=== PATIENT | male | born 1980 | race Caucasian/White ===

== ENCOUNTER → 2017-10-06 21:06 | Outpatient (REF) | payer BC, SELFPAY | LOC: LAB 21:06 | PROVIDERS: Visit Provider Nurse Practitioner Family | DX: R53.83 Other fatigue (principal); Z79.899 Other long term (current) drug therapy ==

== ENCOUNTER 2017-11-11 08:00 | Outpatient (RCR) | payer BC, SELFPAY ==
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
== END 2017-11-11 08:01 | disposition home or self-care (01) ==
LOC: PT 08:00
PROVIDERS: Visit Provider Nurse Practitioner Family
DX: M54.6 Pain in thoracic spine (principal); G89.29 Other chronic pain
CPT/HCPCS: 97010; 97014; 97033; 97110; 97140; G0283

== ENCOUNTER → 2017-11-20 13:38 | Outpatient (CLI) | payer BC, SELFPAY ==
--- NOTE | 2017-11-20 13:41 | XR_ITS ---
EXAM: XR cervical spine 2V HISTORY: ITS.REASON: neck pain ORDERING PHYSICIAN: Venessa Marie PATIENT AGE: 37 years COMPARISON: None FINDINGS: Normal alignment. No fracture or dislocation. No lytic or blastic change. No significant degenerative change. The disc spaces are preserved. There is overlying artifact from the patient's ear rings which reportedly cannot be removed. IMPRESSION: Negative cervical spine
--- NOTE | 2017-11-20 13:41 | XR_ITS ---
EXAM: XR lumbar spine 2-3V HISTORY: ITS.REASON: back pain ORDERING PHYSICIAN: Venessa Marie PATIENT AGE: 37 years COMPARISON: None FINDINGS: Normal alignment. No fracture or dislocation. No lytic or blastic change. There is some endplate irregularity involving the anterior superior aspect of L2 with slight decrease in the disc space at that level suggesting mild degenerative disc disease. There is mild anterolisthesis of L5 on S1 of 5 mm as before. IMPRESSION: 1. Mild degenerative disc disease at L1-L2. There is some minimal endplate irregularity of the superior endplate of L2. This may be better evaluated with MRI if clinically warranted. Early discitis cannot be excluded 2. Mild anterolisthesis of L5 on S1 not significant changed.
--- NOTE | 2017-11-20 13:41 | XR_ITS ---
EXAM: XR thoracic spine 3V HISTORY: ITS.REASON: mid back pain COMPARISON: 10/14/2014 FINDINGS: Normal alignment. No fracture or dislocation. No lytic or blastic change. Minimal endplate osteophytes are present in the lower thoracic spine. IMPRESSION: No change with no acute finding. Mild thoracic spondylosis
== END ==
PROVIDERS: PCP Emergency Medicine; Visit Provider Nurse Practitioner Family
DX: M54.6 Pain in thoracic spine (principal); G89.29 Other chronic pain; M54.2 Cervicalgia; R53.83 Other fatigue
CPT/HCPCS: 72040; 72072; 72100

== ENCOUNTER → 2017-12-29 13:00 | Outpatient (CLI) | payer BC, SELFPAY ==
[2017-12-29 14:42] LABS: Basophils # 0.1 K/mm3 (0-0.2); Basophils % 0.6 % (0.1-2.0); Eosinophils # 0.7 K/mm3 (0.0-0.4); Eosinophils % 6.8 % (0.1-12.0); Hematocrit 46.6 % (42.0-52.0); Lymphocytes % 29.3 K/mm3 (10-50); Mean Corpuscular HGB Conc 34.3 g/dL (31.8-35.4); Mean Corpuscular Hemoglobin 32.5 pg (27.0-31.2); Mean Corpuscular Volume 94.8 fl (80-94); Mean Platelet Volume 7.1 fl (7.4-10.4); Monocytes # 0.4 K/mm3 (0.1-1.0); Monocytes % 4.2 % (1.7-9.3); Neutrophils # 6.1 K/mm3 (1.8-7.8); Platelet Count 325 K/mm3 (142-424); Red Blood Count 4.92 M/mm3 (4.60-6.20); Red Cell Distribution Width 12.5 % (11.5-17.5); White Blood Count 10.3 K/mm3 (4.8-10.8)
[2017-12-29 15:21] LABS: Hemoglobin A1C 5.5 % (0.0-7.0)
[2017-12-29 15:54] LABS: Alanine Aminotransferase 28 U/L (12-78); Albumin Level 4.9 gm/dL (3.4-5.0); Albumin/Globulin Ratio 1.5 (1.1-1.8); Alkaline Phosphatase 43 U/L (46-116); Anion Gap 13.1 mEq/L (5-15); Aspartate Amino Transferase 19 U/L (15-37); Bilirubin,Total 0.3 mg/dL (0.2-1.0); Blood Urea Nitrogen 19 mg/dL (7-18); Calcium 9.8 mg/dL (8.5-10.1); Carbon Dioxide 29 mmol/L (21.0-32.0); Chloride 101 mmol/L (98-107); Chol/HDL Ratio 4.4 (1-3.5); Cholesterol 226 mg/dL (140-200); Creatinine,Serum 0.95 mg/dL (0.70-1.30); Estimated Glomerular Filt Rate 90 ml/min (>60); Free T4 (Free Thyroxine) 0.63 ng/dl (0.76-1.46); GFR (African American) 109 ML/MIN (>60); Globulin 3.2 gm/dl (1.3-3.2); Glucose 96 mg/dL (74-106); HDL Cholesterol 51 mg/dL (27-67); LDL Cholesterol 163 mg/dL (0-130); Potassium 4.1 mmoL/L (3.5-5.1); Sodium 139 mmol/L (136-145); Thyroid Stimulating Hormone 105.06 uIU/ml (0.358-3.740); Total Protein,Serum 8.1 gm/dL (6.4-8.2); Triglycerides 60 mg/dL (30-200); VLDL Cholesterol 12 mg/dL (0-40)
[2018-01-16 20:17] LABS: Vitamin D 25 Hydroxy 15.3
== END ==
PROVIDERS: Visit Provider Nurse Practitioner Family
DX: R53.83 Other fatigue (principal)
CPT/HCPCS: 36415; 80053; 80061; 82652; 83036; 84439; 84443; 85025

== ENCOUNTER → 2018-01-02 13:28 | Outpatient (CLI) | payer BC, SELFPAY ==
--- NOTE | 2018-01-02 13:33 | MR_ITS ---
MR lumbar spine wo/w con COMPARISON: Plain films lumbar spine 10/14/2014 HISTORY: Low back pain TECHNIQUE: Standard sagittal and axial sequences were performed along with a myelogram sequence and post gadolinium T1 sagittal T1 axial images. FINDINGS: Curvature and alignment appear normal. The marrow signal is normal in all lumbar vertebrae. The spinal canal is normal size throughout. There is a normal healthy high signal in each lumbar disc there is no abnormal disc protrusion identified. There are defects of the pars interarticularis bilaterally at L5-S1 with only 1 to 2 mm anterolisthesis of L5 on S1. There are mild hypertrophic facet changes at the L2-3, L3-4 and L4-5 levels.. There is minor anterior osteophytic spurring at the anterior superior border of L2 and anterior superior border of T12. The conus is normal. There is no abnormal enhancement on the postgadolinium images. IMPRESSION: 1. Bilateral spondylolysis L5-S1 with only minor anterolisthesis of L5 on S1 which has not progressed since the previous plain films September 2014. 2. Mild hypertrophic facet changes lower lumbar spine as noted
== END ==
PROVIDERS: PCP Emergency Medicine; Visit Provider Orthopaedic Surgery Adult Reconstructive Orthopaedic Surgery
DX: M51.86 Other intervertebral disc disorders, lumbar region (principal)
CPT/HCPCS: 72158; 76376; A9576

== ENCOUNTER 2018-02-19 08:00 | Outpatient (RCR) | payer BC, SELFPAY | END 2018-02-19 08:01 | disposition home or self-care (01) | LOC: PT 08:00 | PROVIDERS: PCP Emergency Medicine; Visit Provider Orthopaedic Surgery Adult Reconstructive Orthopaedic Surgery | DX: M54.5 Low back pain (principal); M54.2 Cervicalgia | CPT/HCPCS: 36415; 80053; 80061; 82652; 83036; 84439; 84443; 85025; 97010; 97014; 97035; 97110; 97140; 97163; 97164; G0283 ==

== ENCOUNTER → 2018-05-21 15:14 | Outpatient (CLI) | payer BC, SELFPAY | LOC: LAB 15:16 | PROVIDERS: PCP Nurse Practitioner Family; Visit Provider Nurse Practitioner Family | DX: Y99.9 Unspecified external cause status (principal) | CPT/HCPCS: 36415 ==

== ENCOUNTER → 2018-05-28 15:21 | Outpatient (CLI) | payer BC, SELFPAY ==
[2018-05-28 16:40] LABS: Chol/HDL Ratio 3.6 (1-3.5); Cholesterol 176 mg/dL (140-200); HDL Cholesterol 49 mg/dL (27-67); LDL Cholesterol 114 mg/dL (0-130); Thyroid Stimulating Hormone 36.78 uIU/ml (0.358-3.740); Triglycerides 65 mg/dL (30-200); VLDL Cholesterol 13 mg/dL (0-40)
== END ==
PROVIDERS: PCP Emergency Medicine; Visit Provider Nurse Practitioner Family
DX: E78.5 Hyperlipidemia, unspecified (principal)
CPT/HCPCS: 36415; 80061; 84443

== ENCOUNTER 2018-07-20 09:00 | Outpatient (RCR) | payer BC, SELFPAY | END 2018-07-20 09:01 | disposition home or self-care (01) | LOC: PT 09:00 | PROVIDERS: PCP Emergency Medicine; Visit Provider Physical Medicine & Rehabilitation | DX: M47.816 Spondylosis without myelopathy or radiculopathy, lumbar region (principal) | CPT/HCPCS: 97010; 97014; 97110; 97140; 97163; 97164; G0283 ==

== ENCOUNTER → 2018-12-08 14:45 | Outpatient (CLI) | payer BC, SELFPAY ==
[2018-12-08 15:33] LABS: Alanine Aminotransferase 89 U/L (12-78); Albumin Level 4.6 gm/dL (3.4-5.0); Albumin/Globulin Ratio 1.5 (1.1-1.8); Alkaline Phosphatase 50 U/L (46-116); Anion Gap 16.3 mEq/L (5-15); Aspartate Amino Transferase 27 U/L (15-37); Bilirubin,Total 0.3 mg/dL (0.2-1.0); Blood Urea Nitrogen 22 mg/dL (7-18); Calcium 9.4 mg/dL (8.5-10.1); Carbon Dioxide 25 mmol/L (21.0-32.0); Chloride 103 mmol/L (98-107); Cholesterol 124 mg/dL (140-200); Creatinine,Serum 1.03 mg/dL (0.70-1.30); Estimated Glomerular Filt Rate 82 ml/min (>60); GFR (African American) 99 ML/MIN (>60); Globulin 3.1 gm/dl (1.3-3.2); Glucose 102 mg/dL (74-106); HDL Cholesterol 41 mg/dL (27-67); LDL Cholesterol 72 mg/dL (0-130); Potassium 4.3 mmoL/L (3.5-5.1); Sodium 140 mmol/L (136-145); T4 (Thyroxine) 10.8 ug/dl (4.7-13.3); Thyroid Stimulating Hormone 2.72 uIU/ml (0.358-3.740); Total Protein,Serum 7.7 gm/dL (6.4-8.2); Triglycerides 54 mg/dL (30-200); VLDL Cholesterol 11 mg/dL (0-40)
[2018-12-08 16:23] LABS: Basophils # 0.1 K/mm3 (0-0.2); Basophils % 1.4 % (0.1-2.0); Eosinophils # 0.6 K/mm3 (0.0-0.4); Eosinophils % 6.5 % (0.1-12.0); Hematocrit 45.9 % (42.0-52.0); Hemoglobin 15.3 g/dL (14.1-18.0); Lymphocytes # 2.8 K/mm3 (0.7-4.5); Lymphocytes % 32.8 % (10-50); Mean Corpuscular HGB Conc 33.3 g/dL (31.8-35.4); Mean Corpuscular Hemoglobin 32.1 pg (27.0-31.2); Mean Corpuscular Volume 96.4 fl (80-94); Mean Platelet Volume 8.4 fl (7.4-10.4); Monocytes # 0.4 K/mm3 (0.1-1.0); Monocytes % 4.6 % (1.7-9.3); Neutrophils # 4.7 K/mm3 (1.8-7.8); Neutrophils % 54.8 % (37.0-80.0); Platelet Count 298 K/mm3 (142-424); Red Blood Count 4.76 M/mm3 (4.60-6.20); White Blood Count 8.6 K/mm3 (4.8-10.8)
[2018-12-10 12:58] LABS: Vitamin D 25 Hydroxy 71.1 ng/mL (30.0-100.0)
== END ==
PROVIDERS: Visit Provider Nurse Practitioner Family
DX: E78.5 Hyperlipidemia, unspecified (principal)
CPT/HCPCS: 80053; 80061; 82652; 84436; 84443; 85025

== ENCOUNTER → 2018-12-18 15:21 | Outpatient (CLI) | payer BC, SELFPAY ==
[2018-12-18 15:53] LABS: INR 0.97 (0.9-1.1)
[2018-12-20 18:06] LABS: Hep B Core Ab, Total Negative (Negative); Hepatitis B Surface Antigen Negative (Negative)
[2018-12-20 21:30] LABS: HIV Screen 4th Generation wRfx Non Reactive (Non Reactive); Hep A Ab, Total Negative (Negative); Hepatitis B Surf Ab Quant <3.1 mIU/mL (Immunity>9.9); Hepatitis C Antibody 0.1 s/co ratio (0.0-0.9)
== END ==
PROVIDERS: Visit Provider Nurse Practitioner Family
DX: R74.8 Abnormal levels of other serum enzymes (principal)
CPT/HCPCS: 36415; 85610; 86703; 86704; 86706; 86708; 87340; 87380; 87522; G0432

== ENCOUNTER → 2019-01-11 12:37 | Outpatient (CLI) | payer BC, SELFPAY ==
--- NOTE | 2019-01-11 12:43 | MR_ITS ---
MR lumbar spine wo con, MR 3-d myelogram/MRCP HISTORY: Low back pain X years. Bilateral hip and knee pain. Bilateral Leg pain and numbness and tingling at times. ITS.REASON: INTERVERTEBRAL DISC DEGENERATION ORDERING PHYSICIAN: Stevenson Cohen PATIENT AGE: 38 years Comparison: MRI 01-02-18. X-Ray 11-20-17. TECHNIQUE: Standard multiplanar multiecho sequences are performed without contrast. 3-D MIP and myelographic images are also rendered and reviewed FINDINGS: The spinal cord is at the T12-L1 level. T11-T12: Mild degenerative disc disease T12-L1: Unremarkable. L1-L2: Unremarkable. L2-L3: Unremarkable. L3-L4: Mild facet ligamentum flavum hypertrophy with minimal bilateral foraminal narrowing. L4-5: Mild facet and ligamentum flavum hypertrophy with mild bilateral foraminal narrowing. L5-S1: There is mild anterolisthesis of L5 on S1 with bulging disc at that level along with mild facet hypertrophic change with mild bilateral foraminal narrowing No canal stenosis or extruded herniated disc with no significant change. IMPRESSION: 1. There is mild facet and ligamentum flavum hypertrophy from L3 to S1 with mild foraminal narrowing overall not significantly changed. 2. Minimal bulging disc at L5-S1 with minimal anterolisthesis of L5 not significant changed. 3. No canal stenosis or extruded herniated disc apparent.
== END ==
PROVIDERS: PCP Emergency Medicine; Visit Provider Orthopaedic Surgery Adult Reconstructive Orthopaedic Surgery
DX: M51.36 Other intervertebral disc degeneration, lumbar region (principal)
CPT/HCPCS: 72148; 76376

== ENCOUNTER → 2019-09-22 13:29 | Outpatient (CLI) | payer BC, SELFPAY ==
[2019-09-22 16:13] LABS: Free T4 (Free Thyroxine) 0.56 ng/dl (0.76-1.46)
[2019-09-22 16:14] LABS: Thyroid Stimulating Hormone 139.46 uIU/ml (0.358-3.740)
== END ==
PROVIDERS: Visit Provider Emergency Medicine
DX: R53.83 Other fatigue (principal)
CPT/HCPCS: 84439; 84443

== ENCOUNTER 2019-12-01 09:00 | Outpatient (RCR) | payer BC, SELFPAY ==
--- NOTE | 2019-11-22 15:06 | HMH.PTOPEV ---
PT Outpatient Evaluation Rehab PT Outpatient Evaluation Start: 11/22/19 14:33 Freq: Status: Active Protocol: Document 11/22/19 14:34 SHAE (Rec: 11/22/19 15:05 SHAE [id number]) Electronically Signed By Adelso Iraheta, PT 11/22/19 14:34 Outpatient Therapy Subjective History Subjective History Pt reports h/o chronic neck and back pain over the last ~4 yrs. Pt reports no initial injury, and no 'significant' findings on low back MRI/Xray. Pt reports L>R sided mid-to- LBP, however, global spine is 'severe' as well, 'it feels like any movement just causing me to tighten up'. Chief Complaint Pain,Spasms,Stiff Symptom Type Ache,Dull,Stabbing Symptoms Relieved By Rest/Positioning,Heat Symptoms Aggravated By Standing,Bending/Stooping, Physical Activity,Twisting, Walking,Lifting Prior Functional Limitations Reaching,Lifting,Housework, Driving,Standing,Sitting Current Functional Limitations Reaching,Lifting,Housework, Driving,Standing,Sitting, Walking Symptom Description Constant and Continuous Level of pain today (0-10) 8 Pain scale - at its best (0-10) 6 Pain scale - at its worst (0-10) 10 Cervical Eval Palpation Cervical Muscles R Cervical Paraspinal,L Cervical Paraspinal,R Suboccipital,L Suboccipital,R CT Junction,L CT Junction,R Upper Trapezius,L Upper Trapezius,R Thoracic Paraspinals,L Thoracic Paraspinals Cervical/Thoracic Palpation Findings Tenderness,Trigger Point, Muscle Guarding Posture Head/C-Spine Posture Sitting Position Flexed Head/C-Spine Posture Standing Position Flexed Flexibility Deficits Upper Trapezius Muscle Length (R) Severe Tightness,(L) Severe Tightness Levaetor Scapulae Muscle Length (R) Severe Tightness,(L) Severe Tightness Scalene Group Muscle Length (R) Severe Tightness,(L) Severe Tightness Pectoralis Major Muscle Length (R) Moderate Tightness,(L) Moderate Tightness Pectoralis Minor Muscle Length (R) Moderate Tightness,(L) Moderate Tightness Passive Joint Mobility Cervical PIVM
== END 2019-12-01 10:00 | disposition home or self-care (01) ==
LOC: PT 09:00
PROVIDERS: PCP Emergency Medicine; Visit Provider Emergency Medicine
DX: M54.2 Cervicalgia (principal); M54.9 Dorsalgia, unspecified
CPT/HCPCS: 97010; 97014; 97035; 97163; G0283

== ENCOUNTER → 2019-12-01 10:59 | Outpatient (CLI) | payer BC, SELFPAY ==
--- NOTE | 2019-12-01 11:04 | XR_ITS ---
PROCEDURE: XR LUMBAR SPINE MIN 4V CLINICAL INDICATION: back pain COMPARISON: No exams were available for comparison FINDINGS: There is mild lumbar curvature convex right. Minimal spurring is present along the anterior superior aspect of L2. The disc spaces are well preserved. No acute lumbar fracture or dislocation. There is an old eleventh rib fracture on the right with incomplete bony union. There is a moderate amount of retained colonic feces IMPRESSION: 1. No acute finding lumbar spine. 2. Old right 11th rib fracture with incomplete bony union Dictated by: Adair Hendrickson MD 12/01/2019 19:25 Electronically signed by Adair Hendrickson MD in [place] 12/01/2019 19:25
--- NOTE | 2019-12-01 11:04 | XR_ITS ---
PROCEDURE: XR CERVICAL SPINE 5V CLINICAL INDICATION: neck pain COMPARISON: [id number] XR cervical spine 2V from 11/20/2017 FINDINGS: Normal alignment. No fracture or dislocation. No lytic or blastic change. There is some mild foraminal narrowing on the right at C5-C6. Artifact is present from the patient's earrings which he refused to remove. IMPRESSION: No acute finding. Mild right foraminal narrowing at C5-C6 Dictated by: Adair Hendrickson MD 12/01/2019 19:26 Electronically signed by Adair Hendrickson MD in [place] 12/01/2019 19:26
--- NOTE | 2019-12-01 11:04 | XR_ITS ---
PROCEDURE: XR THORACIC SPINE 3V CLINICAL INDICATION: back pain COMPARISON: [id number] XR thoracic spine 3V from 11/20/2017 FINDINGS: There is mild thoracic kyphosis with mild wedging involving T10-T11 and T12 which appears chronic. No acute fracture or dislocation is evident. There is mild degenerative disc disease in the lower thoracic spine. There is an old right 11th rib fracture IMPRESSION: Degenerative changes as described above with old right 11th rib fracture Dictated by: Adair Hendrickson MD 12/01/2019 19:00 Electronically signed by Adair Hendrickson MD in [place] 12/01/2019 19:00
== END ==
PROVIDERS: PCP Emergency Medicine; Visit Provider Emergency Medicine
DX: M54.2 Cervicalgia (principal); M54.9 Dorsalgia, unspecified; M54.5 Low back pain; M54.6 Pain in thoracic spine
CPT/HCPCS: 72050; 72072; 72110

== ENCOUNTER → 2020-01-31 16:53 | Outpatient (CLI) | payer BC, SELFPAY ==
[2020-01-31 17:59] LABS: Basophils # 0.1 K/mm3 (0-0.2); Basophils % 0.9 % (0.1-2.0); Eosinophils # 0.8 K/mm3 (0.0-0.4); Eosinophils % 10.3 % (0.1-12.0); Hemoglobin 14.9 g/dL (14.1-18.0); Lymphocytes # 2.6 K/mm3 (0.7-4.5); Mean Corpuscular Hemoglobin 31.1 pg (27.0-31.2); Mean Corpuscular Volume 91.4 fl (80-94); Mean Platelet Volume 8.8 fl (7.4-10.4); Monocytes # 0.6 K/mm3 (0.1-1.0); Monocytes % 6.7 % (1.7-9.3); Neutrophils # 4.2 K/mm3 (1.8-7.8); Neutrophils % 51.1 % (37.0-80.0); Platelet Count 325 K/mm3 (142-424); Red Blood Count 4.81 M/mm3 (4.60-6.20); White Blood Count 8.2 K/mm3 (4.8-10.8)
[2020-01-31 18:51] LABS: Alanine Aminotransferase 33 U/L (12-78); Albumin Level 4.5 g/dl (3.5-5.0); Albumin/Globulin Ratio 1.5 (1.1-1.8); Alkaline Phosphatase 50 U/L (38-126); Anion Gap 12.4 mEq/L (5-15); Aspartate Amino Transferase 30 U/L (17-59); Blood Urea Nitrogen 19 mg/dl (9-20); Calcium 10.1 mg/dl (8.4-10.2); Carbon Dioxide 26 mmol/L (22.0-30.0); Chloride 100 mmol/L (98-107); Chol/HDL Ratio 2.9 (1-3.5); Cholesterol 144 mg/dl (140-200); Estimated Glomerular Filt Rate 84 ml/min (>60); GFR (African American) 102 ML/MIN (>60); Globulin 3.1 g/dL (1.3-3.2); Glucose 102 mg/dl (74-100); HDL Cholesterol 50 mg/dl (40-60); Potassium 4.4 mmoL/L (3.5-5.1); Sodium 134 mmol/L (136-145); Total Protein,Serum 7.6 g/dl (6.3-8.2); Triglycerides 108 mg/dl (30-150); VLDL Cholesterol 22 mg/dL (0-40)
[2020-01-31 18:52] LABS: Bilirubin,Total 0.1 mg/dl (0.2-1.3)
[2020-01-31 19:02] LABS: Direct LDL Cholesterol 92.47 mg/dL (100-129)
[2020-01-31 19:07] LABS: T4 (Thyroxine) 10.2 ug/dl (5.53-11.0)
[2020-02-02 11:27] LABS: Vitamin D 25 Hydroxy 41.8 ng/mL (30.0-100.0)
== END ==
PROVIDERS: Visit Provider Emergency Medicine
DX: E78.5 Hyperlipidemia, unspecified (principal); M54.9 Dorsalgia, unspecified; E03.9 Hypothyroidism, unspecified
CPT/HCPCS: 80053; 80061; 82652; 84436; 84443; 85025

== ENCOUNTER 2020-04-04 08:30 | Outpatient (RCR) | payer BC, SELFPAY | END 2020-04-04 08:35 | disposition home or self-care (01) | LOC: PT 08:30 | PROVIDERS: PCP Emergency Medicine; Visit Provider Anesthesiology Pain Medicine | DX: G89.4 Chronic pain syndrome (principal) | CPT/HCPCS: 97010; 97014; 97035; 97110; 97163; 97164; G0283 ==

== ENCOUNTER → 2020-04-17 13:52 | Outpatient (CLI) | payer BC, SELFPAY ==
--- NOTE | 2020-04-17 13:54 | MR_ITS ---
PROCEDURE: MR LUMBAR SPINE WO CON CLINICAL INDICATION: LUMBAR SPONDYLOSIS Lbp. Bilateral leg pain. Symptoms x5-6yrs. Prior MRI 01/02/2018 TECHNIQUE: Standard multiplanar multiecho sequences are performed without contrast. 3-D MIP and myelographic images are also rendered and reviewed FINDINGS: There is normal alignment. The spinal cord ends at the T12-L1 level. L1-L2: Unremarkable. L2-L3: Unremarkable. There is mild facet and ligamentum hypertrophy at L3-L4 L4-5 and L5-S1 with minimal anterolisthesis of L5 on S1 and minimal bulging disc along with mild bilateral foraminal narrowing which is not significantly changed. No extruded herniated disc or canal stenosis. There is some type 2 endplate changes anteriorly at L2 superiorly No disc herniation, canal stenosis IMPRESSION: Overall no significant change in the mild lumbar spondylosis as detailed above. No disc herniation or canal stenosis Dictated b Adair Hendrickson MD 04/18/2020 17:42 Adair Hendrickson MD in [place] 04/18/2020 17:42
[2020-04-17 17:46] LABS: T4 (Thyroxine) 11.5 ug/dl (5.53-11.0)
[2020-04-17 17:59] LABS: Thyroid Stimulating Hormone 7.01 uIU/mL (0.465-4.68)
== END ==
PROVIDERS: PCP Emergency Medicine; Visit Provider Anesthesiology Pain Medicine
DX: M47.816 Spondylosis without myelopathy or radiculopathy, lumbar region (principal)
CPT/HCPCS: 36415; 72148; 76376; 84436; 84443

== ENCOUNTER → 2020-04-17 14:35 | Outpatient (CLI) | payer BC, SELFPAY | PROVIDERS: Visit Provider Emergency Medicine | DX: E03.9 Hypothyroidism, unspecified (principal) | CPT/HCPCS: 36415; 84436; 84443 ==

== ENCOUNTER → 2020-08-28 09:01 | Outpatient (CLI) | payer BC, SELFPAY ==
[2020-08-28 10:05] LABS: Iron 99 ug/dL (49-181)
[2020-08-28 10:15] LABS: Total Iron Binding Capacity 302 ug/dL (261-462)
[2020-08-28 10:37] LABS: Thyroid Stimulating Hormone 0.08 uIU/mL (0.465-4.68)
[2020-08-28 13:18] LABS: Vitamin B12 508 pg/mL (239-931)
[2020-09-03 09:58] LABS: 1,25 Dihydroxy Vitamin D 46 pg/mL (.); 1,25-Dihydroxy, Vitamin D-2 <10 pg/mL (.); 1,25-Dihydroxy, Vitamin D-3 41 pg/mL (.)
== END ==
PROVIDERS: Visit Provider Nurse Practitioner Psychiatric/Mental Health
DX: Z00.00 Encounter for general adult medical examination without abnormal findings (principal); F39 Unspecified mood [affective] disorder; Z79.899 Other long term (current) drug therapy
CPT/HCPCS: 36415; 82607; 82652; 83540; 83550; 84443

== ENCOUNTER → 2020-09-05 15:12 | Outpatient (CLI) | payer BC, SELFPAY ==
[2020-09-11 13:06] LABS: Testosterone, Total, LC/MS 417.3 ng/dL (264.0-916.0)
== END ==
PROVIDERS: Visit Provider Emergency Medicine
DX: R53.83 Other fatigue (principal); E66.9 Obesity, unspecified
CPT/HCPCS: 84403

== ENCOUNTER → 2020-12-04 10:52 | Outpatient (CLI) | payer BC, SELFPAY ==
[2020-12-04 12:44] LABS: Coronavirus 19 IgG Antibody Negative (Negative); Coronavirus 19 IgM Antibody Negative (Negative)
== END ==
PROVIDERS: Visit Provider Emergency Medicine
DX: Z01.818 Encounter for other preprocedural examination (principal); Z20.822 Contact with and (suspected) exposure to COVID-19
CPT/HCPCS: 36415; 86328

== ENCOUNTER → 2020-12-04 19:59 | Outpatient (CLI) | payer BC, SELFPAY | PROVIDERS: PCP Emergency Medicine; Visit Provider Emergency Medicine | DX: R09.02 Hypoxemia (principal); G47.33 Obstructive sleep apnea (adult) (pediatric); R40.0 Somnolence; R06.83 Snoring; E66.9 Obesity, unspecified | CPT/HCPCS: 95810 ==

== ENCOUNTER 2021-01-28 19:31 | Emergency (ER) | payer BC, SELFPAY ==
[2021-01-28 19:35] VITALS: BP 146/90; PULSE 86; RESP 19; TEMP 36.6; O2SAT 98; BMI 22.4
[2021-01-28 20:55] VITALS: BP 146/90; PULSE 86; RESP 19; TEMP 36.6; O2SAT 98
--- NOTE | 2021-01-28 20:57 | HMH.EDUTC ---
[facility] Disposition Clinical Impression: Laceration Disposition: Home, Self-Care Condition on Discharge: Good Instructions: Laceration Repair, How to Care for a Laceration After Repair, DI for Laceration Repair -- Simple Additional Instructions: Suture instructions: You have required stitches today. Please read the following instructions so you know how to care for them: 1. Keep wound area dry for the first 24 hours. 2 May clean gently with mild soap and water, after 48 hours to prevent crusting over suture knots. 3. You may shower if your provider gives permission but do not take a bath until the skin is healed.. 4. Never leave a wet dressing or Band-Aid on your stitches as this allows bacteria to reach the area and may cause infection. Band-aids can cause the wound to sweat and not recommended to wear for long periods of time Watch for signs of infection: Increasing redness, tenderness or warmth around the suture site Unusual swelling around the site Appearance of pus around each suture or any red streaks Fever If you develop any of the above signs or symptoms of infection, Follow up with Family Physician immediately 5. Suture removal in _7-10___days 6. Return to [facility] or follow up with family doctor for removal. This can be done by any medical provider during regular hours on Friday through Friday, by appointment. Prescriptions: Amoxicillin/Potassium Clav [Augmentin 875-125 Tablet] 1 tab PO Q12H 7 Days #14 tab Transmission Status: Pending to [facility] Referrals: Alberto Collins MD [Primary Care Provider] - As needed Time of Disposition: 20:59 Medical Decision Making - Kailash Inquiry Pt receiving controlled substance: No Kailash was queried for this patient: No Vital Signs: 01/28/21 19:35 01/28/21 20:55 Temperature 97.8 F 97.8 F Temperature Source Oral Pulse Rate 86 Pulse Rate [Left Brachial] 86 Respiratory Rate 19 19 Blood Pressure 146/90 H Blood Pressure [Right Arm] 146/90 H Blood Pressure Mean [Right Arm] 108 Blood Pressure Source [Right Arm] Automatic Cuff Blood Pressure Position [Right Arm] Sitting 02 Sat by Pulse Oximetry 98 Oxygen Delivery Method Room Air Orders (Tests/Meds): ED MEDICATIONS Discontinued Medications Generic Name Dose Route Start Last Admin Trade Name Freq PRN Reason Stop Dose Admin Tetanus/Reduced Diphtheria/Acell Pertussis 0.5 ml 01/28/21 19:51 01/28/21 20:30 Tet/Diphth/Pert-Adult 0.5ml Syringe IM 01/28/21 19:52 0.5 ml .ONCE ONE Administration Medical Decision Narrative: Patient has dog bite to left forearm due to wound gapping decided to close wound loosely due to high risk of infection if left open, wound was irrigated well with saline and cleaned well with saline and hibacleanse. Patient given tetanus and will place on Augmentin due to risk of infection Patient educated to place ice on the area intermittent for swelling and watch for signs of infection [facility] HPI - General Stated complaint: laceration to left forearm Time Seen by Provider: 01/28/21 20:00 Mode of Arrival: Ambulatory Source of Information: Patient Limitations: No Limitations Description of Symptoms (Recalled from Triage Doc. by RN): PATIENT C/O LACERATION TO LEFT FOREARM THAT HAPPENED TODAY HEENT Symptoms (Recalled from RN notes): No Resp Symptoms (Recalled from RN notes): No Skin Symptoms (Recalled from RN notes): Yes MS Symptoms (Recalled from RN notes): No Functional Status (Recalled from RN notes): WNL - History of Present Illness Provider Complaint: Patient states that he was playing with his dog with a toy when the dog went after the toy and accidently bite him on the left forearm States that he immediatly cleaned the wound and noticed that the area on his forearm was gapped open States that he didnt think it was that deep but thought he better come in and get a tetanus shot and see if needed some antibiotics States that the dog didnt mean to bite him it w
== END 2021-01-28 21:16 | disposition home or self-care (01) ==
PROVIDERS: Emergency Provider Nurse Practitioner; PCP Emergency Medicine
DX: S51.812A Laceration without foreign body of left forearm, initial encounter (principal); W54.0XXA Bitten by dog, initial encounter; Y92.019 Unspecified place in single-family (private) house as the place of occurrence of the external cause; Z23 Encounter for immunization; F12.10 Cannabis abuse, uncomplicated; F41.9 Anxiety disorder, unspecified; J45.909 Unspecified asthma, uncomplicated; E03.9 Hypothyroidism, unspecified; E78.5 Hyperlipidemia, unspecified; F17.290 Nicotine dependence, other tobacco product, uncomplicated
CPT/HCPCS: 12001; 90471; 90715; 99202; G0463

== ENCOUNTER → 2022-02-19 13:53 | Outpatient (CLI) | payer BC, SELFPAY ==
[2022-02-19 14:03] LABS: Basophils # 0.2 K/mm3 (0-0.2); Basophils % 1.7 % (0.1-2.0); Eosinophils # 0.7 K/mm3 (0.0-0.4); Eosinophils % 6.7 % (0.1-12.0); Hematocrit 49.8 % (42.0-52.0); Hemoglobin 17.1 g/dL (14.1-18.0); Lymphocytes # 1.9 K/mm3 (0.7-4.5); Lymphocytes % 18.7 % (10-50); Mean Corpuscular HGB Conc 34.3 g/dL (31.8-35.4); Mean Corpuscular Hemoglobin 32.9 pg (27.0-31.2); Mean Platelet Volume 8.6 fl (7.4-10.4); Monocytes # 0.6 K/mm3 (0.1-1.0); Monocytes % 6.1 % (1.7-9.3); Neutrophils # 6.9 K/mm3 (1.8-7.8); Neutrophils % 66.8 % (37.0-80.0); Platelet Count 362 K/mm3 (142-424); Red Blood Count 5.19 M/mm3 (4.60-6.20); Red Cell Distribution Width 13.5 % (11.5-17.5); White Blood Count 10.3 K/mm3 (4.8-10.8)
[2022-02-19 14:06] LABS: Chloride 102 mmol/L (98-107); Potassium 4.2 mmoL/L (3.5-5.1); Sodium 137 mmol/L (136-145)
[2022-02-19 14:08] LABS: Blood Urea Nitrogen 17 mg/dl (9-20); Estimated Glomerular Filt Rate 108 ml/min (>60); GFR (African American) 130 ML/MIN (>60)
[2022-02-19 14:09] LABS: Alanine Aminotransferase 153 U/L (12-78); Albumin Level 4.6 g/dl (3.5-5.0); Albumin/Globulin Ratio 1.6 (1.1-1.8); Alkaline Phosphatase 61 U/L (38-126); Anion Gap 13.2 mEq/L (5-15); Aspartate Amino Transferase 90 U/L (17-59); Bilirubin,Total 0.4 mg/dl (0.2-1.3); Calcium 10.2 mg/dl (8.4-10.2); Carbon Dioxide 26 mmol/L (22.0-30.0); Cholesterol 181 mg/dl (140-200); Globulin 2.9 g/dL (1.3-3.2); Glucose 139 mg/dl (74-100); Total Protein,Serum 7.5 g/dl (6.3-8.2); Triglycerides 148 mg/dl (30-150); VLDL Cholesterol 30 mg/dL (0-40)
[2022-02-19 14:10] LABS: Chol/HDL Ratio 4.3 (1-3.5); HDL Cholesterol 42 mg/dl (40-60)
[2022-02-19 14:20] LABS: Direct LDL Cholesterol 121.61 mg/dL (100-129)
[2022-02-19 14:26] LABS: Free T4 (Free Thyroxine) 1.99 ng/dl (0.78-2.19)
[2022-02-19 14:48] LABS: Thyroid Stimulating Hormone < 0.02 uIU/mL (0.465-4.68)
== END ==
PROVIDERS: PCP Emergency Medicine; Visit Provider Emergency Medicine
DX: R73.09 Other abnormal glucose (principal); E66.9 Obesity, unspecified; Z68.41 Body mass index [BMI] 40.0-44.9, adult
CPT/HCPCS: 80053; 80061; 83036; 84439; 84443; 85025

== ENCOUNTER 2022-06-01 00:16 | Emergency (ER) | payer BC, SELFPAY ==
--- NOTE | 2022-06-01 00:20 | ECG_ITS ---
APPROVED REPORT Exam: Resting ECG HR:95 bpm ECG Measurements Heart Rate 95 AXES IN 155 P 57 QRSd 87 QRS 58 QT 362 T 74 QTc 414 Conclusion SINUS RHYTHM NORMAL ECG UNCONFIRMED REPORT Electronically signed by : Som Carlton MD 06/01/2022 09:50:04
[2022-06-01 00:25] VITALS: BP 149/96; PULSE 89; RESP 16; O2SAT 96
[2022-06-01 00:29] VITALS: BP 149/96; PULSE 95; RESP 18; TEMP 36.3; O2SAT 95; BMI 40.7
[2022-06-01 00:31] VITALS: BP 155/85; PULSE 89; RESP 17; O2SAT 97
--- NOTE | 2022-06-01 00:37 | XR_ITS ---
PROCEDURE INFORMATION: Exam: XR Chest Exam date and time: 06/01/2022 12:56 AM Age: 41 years old Clinical indication: Cough; Additional info: Cough SOA TECHNIQUE: Imaging protocol: Radiologic exam of the chest. Views: 2 views. COMPARISON: CR XR CERVICAL SPINE 5V 12/01/2019 11:06 AM FINDINGS: Lungs: No acute airspace consolidation. No appreciable pulmonary edema. Pleural spaces: No pleural effusion. No pneumothorax. Heart/Mediastinum: Cardiomediastinal silouhette is within normal limits. Bones/joints: No acute osseous abnormality. IMPRESSION: No acute findings.
--- NOTE | 2022-06-01 00:44 | PC.NURSE ---
Spoke with MD regarding patients symptom, added a rapid covid with flu a and b and a strep test due to patients sore throat.
--- NOTE | 2022-06-01 00:45 | HMH.EDURI ---
Discharge Plan Disposition Patient Disposition: Home, Self-Care Prescriptions Prescriptions: New cephalexin [cephalexin] 500 mg capsule 500 mg PO TID Qty: 30 0RF No Action meloxicam 15 mg tablet 15 mg PO DAILY PRN propranolol 20 mg tablet 20 mg PO TID PRN (Reason: anxiety) Qty: 90 2RF albuterol sulfate 90 mcg/actuation aerosol powdr breath activated 2 inh INHALATION Q4-6H PRN (Reason: shortness of breath or wheezing) Qty: 1 2RF valacyclovir [Valtrex] 500 mg tablet 500 mg PO BID Qty: 190 3RF Rx Instructions: take 1 tablet bid for a week and then 1 every day Vraylar 3 mg capsule 3 mg PO DAILY Qty: 30 2RF paroxetine HCl [Paxil] 30 mg tablet 30 mg PO DAILY Qty: 30 1RF Qelbree 200 mg capsule,extended release 24hr 200 mg PO .COMPLEX Qty: 60 1RF Rx Instructions: take 1 daily for 1 week; then increase to 2 capsules daily hydrochlorothiazide 25 mg tablet See Rx Instructions .ROUTE .COMPLEX Qty: 30 0RF Dose Instruction: TAKE ONE TABLET BY MOUTH ONCE A DAY Rx Instructions: TAKE ONE TABLET BY MOUTH ONCE A DAY levothyroxine 200 mcg tablet See Rx Instructions .ROUTE .COMPLEX Qty: 90 0RF Dose Instruction: TAKE ONE TABLET BY MOUTH ONCE A DAY WITH LEVOTHYROXINE 50MCG (250MCG TOTAL) Rx Instructions: TAKE ONE TABLET BY MOUTH ONCE A DAY WITH LEVOTHYROXINE 50MCG (250MCG TOTAL) atorvastatin 10 mg tablet See Rx Instructions .ROUTE .COMPLEX Qty: 90 0RF Dose Instruction: TAKE ONE TABLET BY MOUTH ONCE A DAY FOR CHOLESTEROL Rx Instructions: TAKE ONE TABLET BY MOUTH ONCE A DAY FOR CHOLESTEROL levothyroxine 50 mcg tablet See Rx Instructions .ROUTE .COMPLEX Qty: 90 0RF Dose Instruction: TAKE ONE TABLET BY MOUTH ONCE A DAY WITH LEVOTHYROXINE 200MCG (250MCG TOTAL) Rx Instructions: TAKE ONE TABLET BY MOUTH ONCE A DAY WITH LEVOTHYROXINE 200MCG (250MCG TOTAL) metformin 500 mg tablet See Rx Instructions .ROUTE .COMPLEX Qty: 60 0RF Dose Instruction: TAKE ONE TABLET BY MOUTH 2 TIMES A DAY Rx Instructions: TAKE ONE TABLET BY MOUTH 2 TIMES A DAY Referrals Follow up/Referrals: Alberto Collins MD [Primary Care Provider] - See instructions Clinical Impressions Clinical Impression: Bronchitis Instructions Patient Instructions: DI for Acute Bronchitis Discharge ED Provider: Alberto Collins URI/Sore Throat HPI General Chief Complaint: Upper Respiratory Infection Stated Complaint: fever, vomiting, coughing, sore throat, chest hurt Time Seen by Provider: 06/01/22 00:45 Mode of Arrival: Ambulatory Source of Information: Patient Limitations: No Limitations Description of Symptoms (Recalled from ER Triage Doc. by RN): Pt c/o having cold like symptoms with chest congestion, dry cough and runny nose for the prior week. States that he woke up one hour ago with dizziness and vomiting. Additionally c/o cp c cough and lung pain. History of Present Illness HPI Narrative: uri sx with cough over the last week MD Complaint: fever, cough and nasal congestion Onset (ago): day(s) Duration: intermittent Severity: moderate Able to tolerate fluids by mouth: Yes Associated symptoms: denies other symptoms Related Data Home Medications Medication Instructions Recorded Confirmed meloxicam 15 mg tablet 15 mg PO DAILY PRN 04/25/21 04/09/22 Previous Rx's Medication Instructions Recorded propranolol 20 mg tablet 20 mg PO TID PRN anxiety #90 tabs 11/08/21 albuterol sulfate 90 mcg/actuation 2 inh inhalation Q4-6H PRN 11/15/21 breath activated powder inhaler shortness of breath or wheezing #1 ea valacyclovir 500 mg tablet 500 mg PO BID #190 tabs 02/19/22 (Valtrex) hydrochlorothiazide 25 mg tablet See Rx Instructions .Route 02/20/22 .COMPLEX #30 tabs atorvastatin 10 mg tablet See Rx Instructions .Route 04/09/22 .COMPLEX #90 tabs cariprazine 3 mg capsule (Vraylar) 3 mg PO DAILY #30 caps 04/09/22 levothy
[2022-06-01 00:46] LABS: Chloride 97 mmol/L (98-107); Potassium 4.1 mmoL/L (3.5-5.1); Sodium 140 mmol/L (136-145)
[2022-06-01 00:49] LABS: Anion Gap 18.1 mEq/L (5-15); Blood Urea Nitrogen 12 mg/dl (9-20); Calcium 9.5 mg/dl (8.4-10.2); Carbon Dioxide 29 mmol/L (22.0-30.0); Creatinine Clearance Estimated 184 mL/min (50-200); Estimated Glomerular Filt Rate 94 ml/min (>60); GFR (African American) 114 ML/MIN (>60); Glucose 161 mg/dl (74-100)
[2022-06-01 00:50] LABS: Coronavirus 19, PCR Not Detected (NotDetected); Influenza A, PCR Not Detected (NotDetected); Influenza B, PCR Not Detected (NotDetected)
[2022-06-01 00:53] LABS: Basophils # 0.3 K/mm3 (0-0.2); Basophils % 1.9 % (0.1-2.0); Eosinophils # 0.8 K/mm3 (0.0-0.4); Eosinophils % 4.9 % (0.1-12.0); Hematocrit 48.8 % (42.0-52.0); Hemoglobin 16.6 g/dL (14.1-18.0); Lymphocytes # 2.3 K/mm3 (0.7-4.5); Mean Corpuscular Hemoglobin 32.5 pg (27.0-31.2); Mean Corpuscular Volume 95.6 fl (80-94); Mean Platelet Volume 7.5 fl (7.4-10.4); Monocytes % 6.1 % (1.7-9.3); Neutrophils # 12.1 K/mm3 (1.8-7.8); Platelet Count 389 K/mm3 (142-424); Red Cell Distribution Width 13.5 % (11.5-17.5); White Blood Count 16.5 K/mm3 (4.8-10.8)
[2022-06-01 00:58] LABS: MANUAL DIFFERENTIAL MANUAL DIFFERENTIAL (MANUAL DIFF)
[2022-06-01 00:58] LABS: Strep Scrn Group A (Rapid) Negative (Negative)
[2022-06-01 01:00] VITALS: BP 130/75; PULSE 97; RESP 19; O2SAT 96
[2022-06-01 01:01] LABS: Troponin I < 0.01 ng/ml (0.00-0.034)
[2022-06-01 01:20] LABS: Lymphocytes % 18 % (10-50); Monocytes % 4 % (2-9); Neutrophils % 72 % (42-76); Platelet Estimate Normal; RBC Morphology Normal; Total Cells Counted 100
[2022-06-01 01:30] VITALS: BP 146/87; PULSE 86; RESP 19; O2SAT 96
[2022-06-01 02:53] VITALS: BP 152/100; PULSE 87; RESP 16; TEMP 36.7; O2SAT 97
== END 2022-06-01 02:57 | disposition home or self-care (01) ==
PROVIDERS: Emergency Provider Emergency Medicine; PCP Emergency Medicine
DX: J40 Bronchitis, not specified as acute or chronic (principal); R42 Dizziness and giddiness; J02.9 Acute pharyngitis, unspecified; J06.9 Acute upper respiratory infection, unspecified; R11.10 Vomiting, unspecified; E78.5 Hyperlipidemia, unspecified; E55.9 Vitamin D deficiency, unspecified; Z79.84 Long term (current) use of oral hypoglycemic drugs; Z20.822 Contact with and (suspected) exposure to COVID-19; Z87.891 Personal history of nicotine dependence; Z79.51 Long term (current) use of inhaled steroids; Z79.899 Other long term (current) drug therapy
CPT/HCPCS: 71046; 80048; 84484; 85007; 85025; 87430; 93005; 99285; C9803; U0003; U0005

== ENCOUNTER → 2023-02-13 09:13 | Outpatient (CLI) | payer BC, SELFPAY ==
[2023-02-13 11:03] LABS: Hemoglobin A1C 6.2 % (4.0-6.0)
== END ==
PROVIDERS: PCP Emergency Medicine; Visit Provider Nurse Practitioner Psychiatric/Mental Health
DX: Z79.899 Other long term (current) drug therapy (principal)
CPT/HCPCS: 36415; 83036

== ENCOUNTER 2024-04-12 10:20 | Outpatient (CLI) | payer BC, SELFPAY ==
[2024-04-12 11:05] LABS: Basophils # 0.2 K/mm3 (0-0.2); Basophils % 1.5 % (0.1-2.0); Eosinophils # 0.9 K/mm3 (0.0-0.4); Eosinophils % 8.2 % (0.1-12.0); Hematocrit 50.4 % (42.0-52.0); Hemoglobin 16.5 g/dL (14.1-18.0); Lymphocytes # 2.2 K/mm3 (0.7-4.5); Lymphocytes % 19.7 % (10-50); Mean Corpuscular HGB Conc 32.7 g/dL (31.8-35.4); Mean Corpuscular Hemoglobin 33.2 pg (27.0-31.2); Mean Corpuscular Volume 101.7 fl (80-94); Mean Platelet Volume 7.4 fl (7.4-10.4); Monocytes # 0.5 K/mm3 (0.1-1.0); Monocytes % 4.6 % (1.7-9.3); Neutrophils # 7.5 K/mm3 (1.8-7.8); Platelet Count 312 K/mm3 (142-424); Red Blood Count 4.96 M/mm3 (4.60-6.20); Red Cell Distribution Width 14.2 % (11.5-17.5); White Blood Count 11.3 K/mm3 (4.8-10.8)
[2024-04-12 11:24] LABS: Alanine Aminotransferase 186 U/L (12-78); Albumin Level 4.2 g/dl (3.5-5.0); Albumin/Globulin Ratio 1.3 (1.1-1.8); Anion Gap 9.3 mEq/L (5-15); Aspartate Amino Transferase 123 U/L (17-59); Bilirubin,Total 0.4 mg/dl (0.2-1.3); Blood Urea Nitrogen 17 mg/dl (9-20); Calcium 10.3 mg/dl (8.4-10.2); Carbon Dioxide 30 mmol/L (22.0-30.0); Chloride 101 mmol/L (98-107); Cholesterol 236 mg/dl (140-200); Estimated Glomerular Filt Rate 82 ml/min (>60); GFR (African American) 100 ML/MIN (>60); Globulin 3.2 g/dL (1.3-3.2); Glucose 125 mg/dl (74-100); HDL Cholesterol 68 mg/dl (40-60); Potassium 4.3 mmoL/L (3.5-5.1); Sodium 136 mmol/L (136-145); Total Protein,Serum 7.4 g/dl (6.3-8.2); Triglycerides 281 mg/dl (30-150); VLDL Cholesterol 56 mg/dL (0-40)
[2024-04-12 11:25] LABS: Alkaline Phosphatase 87 U/L (38-126); Chol/HDL Ratio 3.5 (1-3.5)
[2024-04-12 11:36] LABS: Direct LDL Cholesterol 130.61 mg/dL (100-129)
[2024-04-12 11:42] LABS: 25-OH Vitamin D, Total 34.7 ng/mL (30-100)
[2024-04-12 12:29] LABS: Hemoglobin A1C 6.1 % (4.0-6.0)
[2024-04-12 19:11] LABS: Creatinine,Urine Random 91 mg/dL (Not Estab.)
[2024-04-12 19:16] LABS: Microalbumin < 6.000 mg/L (0-16.7)
[2024-04-13 06:54] LABS: HBsAg Screen Negative (Negative); HCV Ab Non Reactive (Non Reactive); Hep A Ab, IGM Negative (Negative); Hep B Core Ab, IgM Negative (Negative)
== END 2024-04-12 23:59 | disposition home or self-care (01) ==
LOC: LAB 10:21
PROVIDERS: PCP Internal Medicine; Visit Provider Internal Medicine
DX: E66.01 Morbid (severe) obesity due to excess calories (principal)
CPT/HCPCS: 36415; 80050; 80053; 80061; 80074; 82043; 82306; 82570; 83036; 84443; 85025

== ENCOUNTER 2024-04-14 20:31 | Outpatient (CLI) | payer BC, SELFPAY ==
[2024-04-14 22:25] LABS: Free T4 (Free Thyroxine) 0.85 ng/dl (0.78-2.19)
[2024-04-16 08:30] LABS: Thyroid Peroxidase Antibodies 57 IU/mL (0-34); Triiodothyronine (T3) Free 2.6 pg/mL (2.0-4.4)
== END 2024-04-14 23:59 | disposition home or self-care (01) ==
LOC: LAB.DROPOF 20:33
PROVIDERS: PCP Internal Medicine; Visit Provider Internal Medicine
DX: E03.9 Hypothyroidism, unspecified (principal)
CPT/HCPCS: 84439; 84443; 84481; 86376; 86800

== ENCOUNTER 2024-07-27 15:58 | Outpatient (CLI) | payer BC, SELFPAY ==
[2024-07-27 19:01] LABS: Alanine Aminotransferase 195 U/L (12-78); Albumin Level 4.9 g/dl (3.5-5.0); Albumin/Globulin Ratio 1.9 (1.1-1.8); Alkaline Phosphatase 140 U/L (38-126); Anion Gap 20.2 mEq/L (5-15); Aspartate Amino Transferase 130 U/L (17-59); Bilirubin,Total 0.7 mg/dl (0.2-1.3); Blood Urea Nitrogen 12 mg/dl (9-20); Carbon Dioxide 24 mmol/L (22.0-30.0); Chloride 94 mmol/L (98-107); Estimated Glomerular Filt Rate 124 ml/min (>60); GFR (African American) 150 ML/MIN (>60); Globulin 2.6 g/dL (1.3-3.2); Glucose 294 mg/dl (74-100); Potassium 4.2 mmoL/L (3.5-5.1); Sodium 134 mmol/L (136-145); Total Protein,Serum 7.5 g/dl (6.3-8.2)
[2024-07-27 19:09] LABS: Hemoglobin A1C 12.5 % (4.0-6.0)
== END 2024-07-27 23:59 | disposition home or self-care (01) ==
LOC: LAB.DROPOF 07-28 10:12
PROVIDERS: PCP Internal Medicine; Visit Provider Internal Medicine
DX: R73.9 Hyperglycemia, unspecified (principal)
CPT/HCPCS: 80053; 83036

== ENCOUNTER 2025-01-28 14:08 | Outpatient (CLI) | payer BC, SELFPAY ==
[2025-01-28 17:19] LABS: Free T4 (Free Thyroxine) 1.09 ng/dl (0.78-2.19)
[2025-01-28 19:08] LABS: Hemoglobin A1C 5.5 % (4.0-6.0)
== END 2025-01-28 23:59 | disposition home or self-care (01) ==
LOC: LAB.DROPOF 01-31 14:10
PROVIDERS: PCP Internal Medicine; Visit Provider Internal Medicine
DX: Z13.29 Encounter for screening for other suspected endocrine disorder (principal); E11.9 Type 2 diabetes mellitus without complications; E03.9 Hypothyroidism, unspecified; Z79.84 Long term (current) use of oral hypoglycemic drugs; Z79.85 Long-term (current) use of injectable non-insulin antidiabetic drugs
CPT/HCPCS: 83036; 84439; 84443